=== PATIENT | female | born 1985 | race Two or more races ===

== ENCOUNTER 2023-12-15 10:24 | Outpatient (AMB) | payer MEDICAID, SELFPAY ==
--- NOTE | 2023-12-15 10:54 | MHC.OFFVIS ---
Vital Signs 12/15/23 10:57 Height 5 ft 4 in Weight 270 lb BMI 46.3 Intake Visit Reasons: PATROLLER- OA of Cervical spine Intake Note: Fredo is a 38 year old female who presents today as a new patient referred to us by TAMARA Bazzi from [facility] for cervical spine pain. Patient reports she has been having these pain for roughly one year and they are radiating into her arms. She expresses yesterday she felt some lumps behind her neck. She described the pain as if someone is pulling her muscles . She finds difficulty moving her head side to side from her pains. At night she reports her pain is worse and now that it is getting cold it is worsening more. She describes the feeling at night at if he head is heavy. Her shoulders occasionally feel as if someone is pushing down on them. 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 I checked this area and as I palpitated the back of her neck she reports pain. She said her doctor told her to discontinue ibuprofen until she was evaluation. Tylenol and ibuprofen offers no relief. She has muscle relaxers but says she has to drink more than what the directions say due to her not finding relief. Denies past injury and past medical treatment to neck. Patient is in noticeable pain today, she says it is currently over 10 out of 10 pain. Hx of type 2 DM. Chemical Treatment Plant Technician Required: Yes Chemical Treatment Plant Technician Language: Hospital Admitting Clerk Name: [id number] Allergies latex Allergy (Severe, Verified 12/15/23 11:03) Rash morphine Allergy (Severe, Verified 12/15/23 11:03) Rash Medication List - Last Reconciled 12/15/23 by Ana Valladares MD albuterol sulfate 90 mcg/actuation 2 puffs inhalation Q4-6H PRN albuterol sulfate 3 mL inhalation Q6H PRN [id number]-blklohchnkfxa-[id number] 50-325-40 mg 1 tab PO Q6H PRN cyclobenzaprine 10 mg PO TID glipizide 1 tab PO DAILY metformin 1,000 mg PO BID sitagliptin phosphate (Januvia) 1 tab PO DAILY HPI Comments Details: Been having this neck pain for the last year, does not remember how it first started. Would bother her almost every day. Points to posterior neck and upper back, going to trapezius/shoulders, even to arms. Says feel numb and that she can't move them. Also complains of lower back pain. No recent imaging. No PT yet. Appeared sleepy today, says that it is due to the pain. Works housekeeping. History of DM. [facility] Medical History (Updated 12/15/23 @ 11:27 by Ana Valladares MD) Leukocytosis Type 2 diabetes mellitus DANNY (obstructive sleep apnea) Morbid obesity due to excess calories Strabismus Mild intermittent asthma in adult without complication Surgical History (Updated 05/02/20 @ 07:27 by Maritza Gramajo) Hx of tonsillectomy Hx of section Family History (Updated 05/02/20 @ 07:27 by Maritza Gramajo) Mother FH: mental illness HTN (hypertension) High cholesterol Diabetes Arthritis Father Abuse, drug or alcohol Social History (Updated 12/15/23 @ 11:05 by MARV Ramesh) Alcohol intake: current Alcohol intake frequency: holidays/special occasions only Cigarette Packs Per Day: 1 Cigarettes Per Day: 20.0 Years Smoked: 20 Substance Use Type: Marijuana Current occupational status: employed Current occupation: House Keeper Review of Systems Const All systems reviewed & are unremarkable except as noted in HPI and below Physical Exam Vital Signs: BMI result Body Mass Index 46.3 Constitutional: Patient appears to be in no acute distress, well nourished and well developed. Patient was appropriately conversant and oriented. Good historian. MSK: Inspection reveals appropriate head and neck positioning. Tight and tender on bilateral upper trapezius. Nontender on spinous processes. Nontender on subacromial or AC joint. Cervical ROM was full. Spurling's sign negative. Bilateral shoulder, elbow and wrist ROM WNL. No ligamentous laxity or crepitance. No increased effusion. Somewhat give-way weakness due to pain but I think overall strength is 5/5 in all muscle groups tested. No increased tone noted. Neurological: Neurologic examination of the upper and lower extremities was nonfocal with intact sensation, muscle stretch reflexes and without focal motor deficits . Hein?s negative bilaterally. Babinski was down going bilaterally. Clonus was negative. Gait is non-antalgic without loss of balance. Results Reviewed Results Reviewed: I reviewed records from the following: PCP Assessment & Plan Assessment & Plan (1) Myofascial pain: Code(s): M79.18 - Myalgia, other site Category: Medical (2) Neck pain: Code(s): M54.2 - Cervicalgia Category: Medical (3) Shoulder pain: Code(s): M25.519 - Pain in unspecified shoulder Category: Medical Qualifiers: Chronicity: chronic Laterality: bilateral Qualified Code(s): M25.511 - Pain in right shoulder; M25.512 - Pain in left shoulder; G89.29 - Other chronic pain Plan Neck and shoulder pain which I suspect is myofascial in nature. No signs of cervical radiculopathy or myelopathy. No signs of rotator cuff injury. We will do cervical and shoulder x-rays today for completion. I wonder if she is low in vitamin-D, contributing to pain and fatigue. We will check. Referral to physical therapy. Assessment and plan discussed with patient, and patient was agreeable. All questions were answered thoroughly. Follow up 4 weeks. Ana Valladares MD, YADY Board Certified, [place] [employer] and [employer] (ABPMR) Board Certified, [place] [employer] (ABEM) Orders: Orders XR shoulder LT min 2V Today M25.512 - Pain in left shoulder, M25.519 - Pain in unspecified shoulder, M54.2 - Cervicalgia, M79.18 - Myalgia, other site Vitamin D 25-OH Total Today M25.519 - Pain in unspecified shoulder, M54.2 - Cervicalgia, M79.18 - Myalgia, other site PT Evaluation and Treatment Today M25.519 - Pain in unspecified shoulder, M54.2 - Cervicalgia, M79.18 - Myalgia, other site XR shoulder RT min 2V Today M25.519 - Pain in unspecified shoulder, M54.2 - Cervicalgia, M79.18 - Myalgia, other site XR cervical spine 3V Today M25.519 - Pain in unspecified shoulder, M54.2 - Cervicalgia, M79.18 - Myalgia, other site Coding Level of Care Code New Pt Level 4 (86651) Diagnoses Myofascial pain M79.18 Neck pain M54.2 Chronic pain of both shoulders M25.511; M25.512; G89.29 Chronicity: chronic Laterality: bilateral
[2023-12-15 10:57] VITALS: BMI 46.3
== END 2023-12-15 12:13 | disposition home or self-care (01) ==
PROVIDERS: Visit Provider Physical Medicine & Rehabilitation
DX: M79.18 Myalgia, other site (principal); M54.2 Cervicalgia; M25.511 Pain in right shoulder; M25.512 Pain in left shoulder; G89.29 Other chronic pain
CPT/HCPCS: 99203

== ENCOUNTER 2023-12-15 11:49 | Outpatient (REF) | payer MEDICAID, SELFPAY ==
[2023-12-15 14:19] LABS: Vitamin D 25-OH Total 21.2 ng/mL (>30)
== END 2023-12-15 11:50 | disposition home or self-care (01) ==
LOC: HO.10HDL 11:49
PROVIDERS: Visit Provider Physical Medicine & Rehabilitation
DX: M79.18 Myalgia, other site (principal); M54.2 Cervicalgia
CPT/HCPCS: 36415; 82306

== ENCOUNTER 2024-01-13 10:44 | Outpatient (AMB) | payer MEDICAID, SELFPAY ==
--- NOTE | 2024-01-13 11:05 | MHC.OFFVIS ---
Vital Signs 01/13/24 11:12 Height 5 ft 4 in Weight 270 lb BMI 46.3 Intake Visit Reasons: OV- 4 WK f/u OA of Cervical spine Intake Note: Fredo is a 38 year old female who presents today for evaluation of her cervical spine pain. Patient reports she was unable to attend her initial PT evaluation yesterday due to schedule coflict. She would like to do PT in [place] and is willing to bring them the referral. Today patient complains of worsening neck pain keeping her up at night. Fresh Work Inspector Required: Yes Fresh Work Inspector Services: Fresh Work Inspector Present Fresh Work Inspector Name: RajRMA/LM Allergies latex Allergy (Severe, Verified 01/13/24 11:06) Rash morphine Allergy (Severe, Verified 01/13/24 11:06) Rash Medication List - Last Reconciled 01/13/24 by Ana Valladares MD albuterol sulfate 90 mcg/actuation 2 puffs inhalation Q4-6H PRN albuterol sulfate 3 mL inhalation Q6H PRN cyclobenzaprine 10 mg PO TID glipizide ER 10 mg PO QAM metformin 1,000 mg PO BID sitagliptin phosphate (Januvia) 1 tab PO DAILY sumatriptan succinate 50 mg PO DAILY PRN tirzepatide (Mounjaro) 7.5 mg subcut QWEEK topiramate 50 mg PO BID HPI Comments Details: Been having this neck pain for the last year, does not remember how it first started. Would bother her almost every day. Points to posterior neck and upper back, going to trapezius/shoulders, even to arms. Says feel numb and that she can't move them. Also complains of lower back pain. No recent imaging. No PT yet. Appeared sleepy today, says that it is due to the pain. Works housekeeping. History of DM. Still the same since I saw her. Not improved. Says more right side. Numbness on right shoulder area. Has not started PT. [facility] Medical History (Updated 12/15/23 @ 11:27 by Ana Valladares MD) Leukocytosis Type 2 diabetes mellitus DANNY (obstructive sleep apnea) Morbid obesity due to excess calories Strabismus Mild intermittent asthma in adult without complication Surgical History (Updated 05/02/20 @ 07:27 by Maritza Gramajo) Hx of tonsillectomy Hx of section Family History (Updated 05/02/20 @ 07:27 by Maritza Gramajo) Mother FH: mental illness HTN (hypertension) High cholesterol Diabetes Arthritis Father Abuse, drug or alcohol Social History (Updated 12/15/23 @ 11:05 by MARV Ramesh) Alcohol intake: current Alcohol intake frequency: holidays/special occasions only Cigarette Packs Per Day: 1 Cigarettes Per Day: 20.0 Years Smoked: 20 Substance Use Type: Marijuana Current occupational status: employed Current occupation: House Keeper Physical Exam Vital Signs: BMI result Body Mass Index 46.3 Constitutional: Patient appears to be in no acute distress, well nourished and well developed. Patient was appropriately conversant and oriented. MSK: Inspection reveals appropriate head and neck positioning. Tight and tender on bilateral upper trapezius. Cervical ROM was full. Spurling's sign negative. Bilateral shoulder, elbow and wrist ROM WNL. No ligamentous laxity or crepitance. No increased effusion. Neurological: Neurologic examination of the upper and lower extremities was nonfocal with intact sensation, muscle stretch reflexes and without focal motor deficits . Hein?s negative bilaterally. Gait is non-antalgic without loss of balance. Results Reviewed Results Reviewed: Independently reviewed shoulder x-ray, appears unremarkable to me. Pending official report by Radiology. Independently reviewed cervical x-ray and shared images with patient. Loss of lordosis. Anterior endplate spurs C5 and C6. Disc spaces were preserved. Official report not yet done by Radiology. Assessment & Plan Assessment & Plan (1) Myofascial pain: Code(s): M79.18 - Myalgia, other site Category: Medical Plan Given loss of lordosis seen on cervical x-ray, this confirms our working diagnosis of myofascial pain. She has no signs of cervical radiculopathy or myelopathy on exam. Encouraged to start physical therapy with instructions given: work on trapezius and posterior cervical muscles. Discussed how she can position her pillow so she can sleep better at night. Assessment and plan discussed with patient, and patient was agreeable. All questions were answered thoroughly. Follow up 2 months or after PT. Ana Valladares MD, YADY Board Certified, [place] [employer] and [employer] (ABPMR) Board Certified, [place] [employer] (ABEM) Coding Level of Care Code Est Pt Level 4 (60660) Complex EM visit Add On G2211 Diagnoses Myofascial pain M79.18
[2024-01-13 11:12] VITALS: BMI 46.3
== END 2024-01-13 11:35 | disposition home or self-care (01) ==
PROVIDERS: Visit Provider Physical Medicine & Rehabilitation
DX: M79.18 Myalgia, other site (principal)
CPT/HCPCS: 99213

== ENCOUNTER → 2024-01-13 10:44 | Outpatient (BNVA) | payer MEDICAID, SELFPAY | PROVIDERS: Visit Provider Physical Medicine & Rehabilitation | DX: M79.18 Myalgia, other site (principal) | CPT/HCPCS: 99212 ==